=== PATIENT | female | born 1985 | race American Indian/Alaskan Native ===

== ENCOUNTER 2018-06-05 14:43 | Emergency (ER) | payer SELFPAY ==
--- NOTE | 2018-06-05 15:51 | Emergency Department Report ---
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
[2018-06-05 18:29] LABS: Bacteria,Urine 1+ /HPF (Negative); Bilirubin,Urine NEG (Negative); Blood,Urine LG (Negative); Color,Urine Amber (Yellow); Mucus,Urine 2+ /HPF
[2018-06-05 18:34] LABS: HCG Qualitative,Urine Negative (Negative)
[2018-06-05] MEDS ORDERED: XYLOCAINE 1% MPF 5 mL INFILTRATI ONE (20:13)
[2018-06-05] MEDS ORDERED: ROCEPHIN IM ONE (20:13)
[2018-06-05] MEDS ORDERED: ZITHROMAX PO ONE (20:13)
--- NOTE | 2018-06-05 20:15 | Emergency Department Report ---
ED Female HPI - General Chief complaint: Abdominal Pain Stated complaint: STOMACH PAIN/DIZZY Time Seen by Provider: 06/05/18 15:45 Source: patient Mode of arrival: Ambulatory Limitations: No Limitations - History of Present Illness Initial comments: This is a 32-year-old female nontoxic, well nourished in appearance, no acute signs of distress presents to the ED with c/o of vaginal discharge. Patient stated she is currently on her menstrual cycle and has vaginal bleeding. Patient also has some pelvic cramping but stated is intermittent. Patient curretnly in the ED during exam and interview denies any pelvic pain. Patient denies any vaginal pain or swelling. Patient denies any vaginal ulcers or lesions. Patient denies any nausea, vomiting, chest pain, shortness of breathe, fever, chills, headache, back pain, numbness, tingling, stiff neck. Patient denies any urinary symptoms. Patient denies any allergies or PMH. MD Complaint: vaginal discharge, pelvic pain, possible STD -: days(s) (2) Radiation: non-radiating Severity: mild Severity scale (0 -10): 3 Quality: cramping Consistency: intermittent, now resolved Improves with: none Worsens with: none Are you Now?: No Associated Symptoms: vaginal discharge, other (pelvic pain). denies: vaginal bleeding, abdominal pain, nausea/vomiting, fever/chills, headaches, loss of appetite, dysuria, hematuria, rash, seizure, shortness of breath, syncope, weakness - Related Data Sexually active: Yes Previous Rx's Medication Instructions Recorded Last Taken Type metroNIDAZOLE [Flagyl] 500 mg PO Q12HR #14 tab 06/05/18 Unknown Rx Allergies Allergy/AdvReac Type Severity Reaction Status Date / Time No Known Allergies Allergy Unverified 06/05/18 15:42 ED Review of Systems ROS: Stated complaint: STOMACH PAIN/DIZZY Other details as noted in HPI Constitutional: denies: chills, fever Eyes: denies: eye pain, eye discharge, vision change ENT: denies: ear pain, throat pain Respiratory: denies: cough, shortness of breath, wheezing Cardiovascular: denies: chest pain, palpitations Endocrine: no symptoms reported Gastrointestinal: denies: abdominal pain, nausea, diarrhea Genitourinary: discharge. denies: urgency, dysuria, abnormal menses Musculoskeletal: denies: back pain, joint swelling, arthralgia Skin: denies: rash, lesions Neurological: denies: headache, weakness, paresthesias Psychiatric: denies: anxiety, depression Hematological/Lymphatic: denies: easy bleeding, easy bruising ED Past Medical Hx - Social History Smoking Status: Current Every Day Smoker Substance Use Type: Marijuana - Medications Home Medications: Home Medications Medication Instructions Recorded Confirmed Last Taken Type metroNIDAZOLE [Flagyl] 500 mg PO Q12HR #14 tab 06/05/18 Unknown Rx ED Physical Exam - General Limitations: No Limitations General appearance: alert, in no apparent distress - Head Head exam: Present: atraumatic, normocephalic - Eye Eye exam: Present: normal appearance - Neck Neck exam: Present: normal inspection, full ROM - GI/Abdominal GI/Abdominal exam: Present: soft, normal bowel sounds. 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 Absent: erythema, vaginal discharge, vaginal bleeding, foreign body, tissue, laceration Bi-manual exam: Present: normal bi-manual exam, other ([facility] field education director present during exam for chaparone ). Absent: cervical motion tendernes, adnexal tenderness, adnexal mass, uterine enlargement, uterine tenderness - Extremities Exam Extremities exam: Present: normal inspection, full ROM - Back Exam Back exam: Present: normal inspection, full ROM - Neurological Exam Neurological exam: Present: alert, oriented X3 - Psychiatric Psychiatric exam: Present: normal affect, normal mood - Skin Skin exam: Present: warm, dry, intact, normal color. Absent: rash ED Course Vital Signs 06/05/18 15:40 Temperature 98.1 F Pulse Rate 90 Respiratory 16 Rate Blood Pressure 131/86 O2 Sat by Pulse 99 Oximetry - Reevaluation(s) Reevaluation #1: 06/05/18 20:17 Patient is speaking in full sentences with no signs of distress noted. ED Medical Decision Making - Medical Decision Making This is a 32-year-old female that presents with possible STD and bacterial vaginosis. Patient is stable was examined by me. There is no abdominal tend erness. No pelvic pain. UA obtained. Wet prep obtained. Gonorrhea chlamydia swab pending. Patient was instructed to return in 3-5 days for GC results. Patient wanted empirical treatment so patient received 250 mg Rocephin and 1 g of azithromycin by mouth. Patient was instructed to Follow-up with a primary care doctor in 3-5 days or if symptoms worsen and continue return to emergency room as soon as possible. At time of discharge, the patient does not seem toxic or ill in appearance. No acute signs of distress noted. Patient agrees to discharge treatment plan of care. No further questions noted by the patient. Critical care attestation.: If time is entered above; I have spent that time in minutes in the direct care of this critically ill patient, excluding procedure time. ED Disposition Clinical Impression: Possible exposure to STD, Bacterial vaginosis Disposition: TO HOME OR SELFCARE Is pt being admited?: No Does the pt Need Aspirin: No Condition: Stable Instructions: Safe Sex (ED), Bacterial Vaginosis (ED), Metronidazole (By mouth) Additional Instructions: Follow-up with a primary care doctor in 3-5 days or if symptoms worsen and continue return to emergency room as soon as possible. Return in 3-5 days for gonorrhea and chlamydia results. Do not consume any alcohol while taking Flagyl. Prescriptions: metroNIDAZOLE [Flagyl] 500 mg PO Q12HR #14 tab Referrals: PRIMARY MD INGA [Referring] - 3-5 Days MARCELLO KERR MD [Staff Physician] - 3-5 Days [facility] [Outside] - 3-5 Days [facility] [Outside] - 3-5 Days Forms: Work/School Release Form(ED)
[2018-06-05] MEDS ORDERED: ZOFRAN ODT PO ONE (21:17)
[2018-06-05 22:01] VITALS: BP 141/109
== END 2018-06-05 22:01 | disposition home or self-care (01) ==
LOC: ED 14:43
DX: N76.0 Acute vaginitis (principal); B96.89 Other specified bacterial agents as the cause of diseases classified elsewhere; F17.200 Nicotine dependence, unspecified, uncomplicated; F12.10 Cannabis abuse, uncomplicated; Z20.2 Contact with and (suspected) exposure to infections with a predominantly sexual mode of transmission
CPT/HCPCS: 81001; 81025; 87210; 87591; 96372; 99284; J0696; Q0162